=== PATIENT | male | born 1975 | race Native Hawaiian/Other Pacific Islander ===

== ENCOUNTER 2017-04-03 12:53 | Emergency (ER) | payer SELFPAY ==
--- NOTE | 2017-04-03 13:57 | Emergency Department Report ---
ED Headache HPI - General Chief Complaint: Headache Stated Complaint: HEADACHE Time Seen by Provider: 04/03/17 13:55 - History of Present Illness Initial Comments: 41-year-old male past medical history diabetes presents with complaint of 3 weeks of worsening right-sided throbbing headache. Patient states that approximately one week ago he noticed that his right eye began deviating immediately began experiencing double vision. Denies fevers or chills denies any head trauma. States he came to the ED 48 hours ago and was assessed and discharged. Patient states the headache has not improved and seems to be worsening which is why he presents today to the ED. Patient is [place]gu[place]- speaking which I speak fluently. Patient is currently awake alert and oriented 3. Timing/Duration: episodic, other (3 weeks) Quality: moderate Head Injury Location: temporal Associated Symptoms: denies symptoms Allergies/Adverse Reactions: Allergies No Known Allergies Allergy (Verified 04/03/17 13:52) Home Medications: Ambulatory Orders Butalb/Acetamin/Caff 50-325-40 [Fioricet] 2 tab PO Q6HR PRN #40 tab 04/01/17 Prochlorperazine [Compazine] 10 mg PO Q8HR PRN #20 tablet 04/01/17 Aspirin EC [Aspirin Enteric Coated TAB] 81 mg PO QDAY #30 tablet. 04/04/17 HYDROcodone/APAP 5-325 [Munger 5/325] 1 each PO Q6HR PRN #12 tablet 04/04/17 Ondansetron [Zofran Odt] 4 mg PO Q8HR PRN #10 tab.rapdis 04/04/17 ED Review of Systems ROS: Stated complaint: HEADACHE Other details as noted in HPI Constitutional: denies: chills, fever Eyes: vision change (doubel vision right eye). denies: eye pain, eye discharge ENT: denies: ear pain, throat pain Respiratory: denies: cough, shortness of breath, wheezing Cardiovascular: denies: chest pain, palpitations Endocrine: no symptoms reported Gastrointestinal: denies: abdominal pain, nausea, diarrhea Genitourinary: denies: urgency, dysuria Musculoskeletal: denies: back pain, joint swelling, arthralgia Skin: denies: rash, lesions Neurological: as per HPI, headache (3 weeks of persistent headache). denies: weakness, paresthesias Psychiatric: denies: anxiety, depression Hematological/Lymphatic: denies: easy bleeding, easy bruising ED Past Medical Hx - Past Medical History Previous Medical History?: Yes Hx Diabetes: Yes - Surgical History Past Surgical History?: No - Social History Smoking Status: Current Some Day Smoker Substance Use Type: None - Medications Home Medications: Home Medications Medication Instructions Recorded Confirmed Last Taken Type Butalb/Acetamin/Caff 50-325-40 2 tab PO Q6HR PRN #40 tab 04/01/17 Unknown Rx [Fioricet] Prochlorperazine [Compazine] 10 mg PO Q8HR PRN #20 tablet 04/01/17 Unknown Rx Aspirin EC [Aspirin Enteric Coated 81 mg PO QDAY #30 tablet.dr 04/04/17 Unknown Rx TAB] HYDROcodone/APAP 5-325 [[place] 1 each PO Q6HR PRN #12 tablet 04/04/17 Unknown Rx 5/325] Ondansetron [Zofran Odt] 4 mg PO Q8HR PRN #10 tab.rapdis 04/04/17 Unknown Rx ED Physical Exam - General Limitations: Language Barrier General appearance: alert, in no apparent distress - Head Head exam: Present: atraumatic, normocephalic - Eye Eye exam: Present: normal appearance, PERRL. Absent: other (right eye gaze deviation , downward and outward, right eye cannot track medially) - Expanded Eye Exam Expanded Pupils: Regular, Round: Bilateral, Reactive: Bilateral Visual acuity (R) = 20/: 30 Visual acuity (L) = 20/: 30 - ENT ENT exam: Present: mucous membranes moist - Neck Neck exam: Present: normal inspection - Respiratory Respiratory exam: Present: normal lung sounds bilaterally. Absent: respiratory distress - Cardiovascular Cardiovascular Exam: Present: regular rate, normal rhythm. Absent: systolic murmur, diastolic murmur, rubs, gallop - GI/Abdominal GI/Abdominal exam: Present: soft, normal bowel sounds - Rectal Rectal exam: Present: deferred - Extremities Exam Extremities exam: Present: normal inspection - Back Exam Back exam: Present: normal inspection - Neurological Exam Neurological exam: Present: alert, oriented X3 - Expanded Neurological Exam Expanded Patient oriented to: Present: person, place, time Cranial nerves: EOM's Intact: Abnormal Right (right eye outward and downward gaze deviation), Nystagmus: Normal Cerebellar function: Finger to Nose: Normal, Heel to Valladares: Normal, Romberg: Normal Upper motor neuron: Mati Neglect: Normal, Pronator Drift: Normal Sensory exam: Upper Extremity Light Touch: Normal, Lower Extremity Light Touch: Normal Motor strength exam: RUE: 5, LUE: 5, RLE: 5, LLE: 5 Best Eye Response (Hixson): (4) open spontaneously Best Motor Response (Carolyne): (6) obeys commands Best Verbal Response (Hixson): (5) oriented Carolyne Total: 15 - Psychiatric Psychiatric exam: Present: normal affect, normal mood - Skin Skin exam: Present: warm, dry, intact, normal color. Absent: rash ED Course Vital Signs 04/03/17 04/04/17 13:48 00:18 Temperature 98.4 F Pulse Rate 71 53 L Respiratory 16 16 Rate Blood Pressure 123/86 Blood Pressure 139/92 [Left] O2 Sat by Pulse 99 99 Oximetry ED Medical Decision Making - Lab Data Result diagrams: 04/03/17 14:03 04/03/17 14:03 - Medical Decision Making A/P: headache, right eye gaze devation 1- I discussed case with Dr. Garcia who recommended obtaining CT noncon head, CT angio head. Both WNL 2- I consulted teleNeuro service, Case discussed with Dr. Lemus who examined the pat and took hx via Teleneuro device. Clinical concern for 3rd nerve palsy and new right medial rectus palsy. Recommendation to obtain carotid US ( pt already had IV contrast today, cannot obtain Ct angio neck). At rec of Dr. Lemus via TeleNeruo service I also obtained an ESR and CRP to screen for vasculitic conditions, both negative. EKG Sinus rhythm, 3- Will start pt on ASA 81mg qday 4- As carotid doppler is unavailable now will give pt order form for carotid US to screen for dissection 5- I discussed the case with [facility] on-call neurologist Dr. Covington. As per Dr. Covington patient needs to follow up as outpatient, third cranial nerve palsy is a known phenomenon and diabetics and he likely has microvascular disease based on results of CT is clinical history and clinical presentation. This is consistent with the recommendations of Dr. Lemus via Teleneruology 6- I discussed the case and plan with Dr. Lyn before discharging the pt. He agreed pt can f/u as outpt. . Critical Care Time: Yes Critical care time in (mins) excluding proc time.: 240 Critical care attestation.: If time is entered above; I have spent that time in minutes in the direct care of this critically ill patient, excluding procedure time. 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 Patient given order form. Patient states she understands he must return for carotid ultrasound. [email or web address] Prescriptions: Aspirin EC [Aspirin Enteric Coated TAB] 81 mg PO QDAY #30 tablet. HYDROcodone/APAP 5-325 [Munger 5/325] 1 each PO Q6HR PRN #12 tablet PRN Reason: Headache Ondansetron [Zofran Odt] 4 mg PO Q8HR PRN #10 tab.rapdis PRN Reason: Nausea Referrals: [facility] [Outside] - 3-5 Days [facility] [Outside] - 3-5 Days DC LOGAN MD [Staff Physician] - 3-5 Days RENALDO MANCINI MD [Referring] - 3-5 Days Forms: Work/School Release Form(ED) Time of Disposition: 00:03 Print Language: KYRGYZ
[2017-04-03 14:21] LABS: Basophils % (Auto) 0.6 % (0.0-1.8); Eosinophils % (Auto) 12.9 % (0.0-4.3); Mean Corpuscular HGB Conc 36 % (32-34); Mean Corpuscular Hemoglobin 29 pg (28-32); Mean Corpuscular Volume 82 fl (84-94); Platelet Count 256 K/mm3 (140-440); Red Blood Count 5.13 M/mm3 (3.65-5.03); Red Cell Distribution Width 12.9 % (13.2-15.2); White Blood Count 8.8 K/mm3 (4.5-11.0)
[2017-04-03 14:22] LABS: Hematocrit 41.9 % (35.5-45.6)
[2017-04-03] MEDS ORDERED: REGLAN IV ONE (14:23)
[2017-04-03 14:34] LABS: Anion Gap 16 mmol/L; BUN/Creatinine Ratio 17; Blood Urea Nitrogen 10 mg/dL (9-20); Calcium 9.6 mg/dL (8.4-10.2); Carbon Dioxide 27 mmol/L (22-30); Chloride 94.7 mmol/L (98-107); Glucose 356 mg/dL (75-100); Potassium 4.5 mmol/L (3.6-5.0); Sodium 133 mmol/L (137-145)
[2017-04-03] MEDS ORDERED: NACL 0.9% 1000 ML 1,000 ML IV ONE (14:35)
--- NOTE | 2017-04-03 15:55 | Cat Scan Report ---
CT HEAD WITHOUT CONTRAST INDICATION: Headache. COMPARISON: 04/01/2017. FINDINGS: Noncontrast head CT demonstrates normal ventricles and sulci without acute or recent infarct, hemorrhage, mass effect or midline shift. No abnormal extra-axial fluid collections. Posterior fossa structures and basilar cisterns appear within normal limits. Clear imaged paranasal sinuses and mastoid air cells. Intact calvarium. Stable 3 mm right paramidline frontal scalp radiodense foreign body. Edentulous jaw. CONCLUSION: No acute intracranial CT abnormality, as described. Thank you for the opportunity to participate in this patient's care.
[2017-04-03] MEDS ORDERED: TYLENOL PO ONE (17:09)
--- NOTE | 2017-04-03 17:29 | Cat Scan Report ---
FINAL REPORT EXAM: CT ANGIO HEAD HISTORY: headache worsening, right eye deviation CT angiogram with intravenous contrast. Multiplanar and maximum intensity projection reconstructions PRIORS: None. FINDINGS: Normal appearance of the intracranial portion of the carotid arteries. The MCA and CRIS distributions are unremarkable Distal vertebral arteries are intact. The basilar and ROOFER METAL circulation is within normal limits No evidence for major vascular occlusion or aneurysm No intraorbital abnormalities are identified. IMPRESSION: Normal CT angiogram head
[2017-04-03] MEDS ORDERED: HALFPRIN EC PO ONE (23:56)
[2017-04-03] MEDS ORDERED: NORCO 5/325 PO ONE (23:57)
[2017-04-03] MEDS ORDERED: ZOFRAN ODT PO ONE (23:57)
[2017-04-04 00:18] VITALS: BP 139/92
== END 2017-04-04 00:30 | disposition home or self-care (01) ==
LOC: ED 12:53
DX: H49.01 Third [oculomotor] nerve palsy, right eye (principal); R51 Headache; E11.9 Type 2 diabetes mellitus without complications; F17.200 Nicotine dependence, unspecified, uncomplicated
CPT/HCPCS: 36415; 70450; 70496; 80048; 82962; 84484; 85025; 85652; 86140; 93005; 93010; 96361; 96374; 99291; J2765; J7030; Q9967; Q0162

== ENCOUNTER 2018-11-11 17:56 | Emergency (ER) | payer SELFPAY ==
--- NOTE | 2018-11-11 19:41 | Emergency Department Report ---
ED Alcohol HPI - General Chief Complaint: Weakness Stated Complaint: ETOH/PARANOID Time Seen by Provider: 11/11/18 19:00 Source: patient, EMS Mode of arrival: Stretcher Limitations: Language Barrier (child and family services worker used) - History of Present Illness Initial Comments: 43-year-old male with a past smoker history of alcohol abuse presents to the hospital with acute alcohol intoxication and weakness. Patient drinks beer and liquor daily lately. He denies history of alcohol withdrawal tremors or seizures. He stated he was walking a lot and states that he could not walk anymore. He felt weak and sat down. He denies syncope, fall, or head injury. He denies any chest pain, shortness of breath, abdominal pain, nausea, vomiting, or dysuria. He denies any medical hx despite previous report a history of diabetes or record. - Related Data Previous Rx's Medication Instructions Recorded Last Taken Type Butalb/Acetamin/Caff 50-325-40 2 tab PO Q6HR PRN #40 tab 04/01/17 Unknown Rx [Fioricet] Prochlorperazine [Compazine] 10 mg PO Q8HR PRN #20 tablet 04/01/17 Unknown Rx Aspirin EC [Aspirin Enteric Coated 81 mg PO QDAY #30 tablet.dr 04/04/17 Unknown Rx TAB] HYDROcodone/APAP 5-325 [[place] 1 each PO Q6HR PRN #12 tablet 04/04/17 Unknown Rx 5/325] Ondansetron [Zofran Odt] 4 mg PO Q8HR PRN #10 tab.rapdis 04/04/17 Unknown Rx Sodium Chloride [Saline Nasal 1 - 2 sprays NS PRN PRN #1 bottle 11/12/18 Unknown Rx [place]] Allergies Allergy/AdvReac Type Severity Reaction Status Date / Time No Known Allergies Allergy Verified 04/03/17 13:52 ED Review of Systems ROS: Stated complaint: ETOH/PARANOID Other details as noted in HPI Comment: All other systems reviewed and negative ED Past Medical Hx - Past Medical History Previous Medical History?: Yes Hx Diabetes: Yes - Surgical History Past Surgical History?: No - Social History Smoking Status: Never Smoker Substance Use Type: Alcohol - Medications Home Medications: Home Medications Medication Instructions Recorded Confirmed Last Taken Type Butalb/Acetamin/Caff 50-325-40 2 tab PO Q6HR PRN #40 tab 04/01/17 Unknown Rx [Fioricet] Prochlorperazine [Compazine] 10 mg PO Q8HR PRN #20 tablet 04/01/17 Unknown Rx Aspirin EC [Aspirin Enteric Coated 81 mg PO QDAY #30 tablet.dr 04/04/17 Unknown Rx TAB] HYDROcodone/APAP 5-325 [[place] 1 each PO Q6HR PRN #12 tablet 04/04/17 Unknown Rx 5/325] Ondansetron [Zofran Odt] 4 mg PO Q8HR PRN #10 tab.rapdis 04/04/17 Unknown Rx Sodium Chloride [Saline Nasal 1 - 2 sprays NS PRN PRN #1 bottle 11/12/18 Unkno wn Rx [place]] ED Physical Exam - General Limitations: No Limitations - Other Other exam information: General: sleeping but easily arousable Head exam: Atraumatic, normocephalic Eyes exam: Normal appearance ENT: Moist mucous membrane Neck exam: Normal inspection, full range of motion, no meningismus nontender Respiratory exam: Clear to auscultation bilateral, no wheezes, rales, crackles Cardiovascular: Normal rate and rhythm, normal heart sounds Abdomen: Soft, nondistended, and nontender, with normal bowel sounds, no rebound, or guarding Extremity: Full range of motion normal inspection no deformity Back: Normal Inspection, full range of motion, no tenderness Neurologic: Alert, oriented x3, cranial nerves intact, no motor or sensory deficit, no tremor Psychiatric: normal affect, normal mood, alcohol intoxication Skin: Warm, dry, intact ED Course Vital Signs 11/11/18 11/11/18 11/11/18 19:29 19:33 22:31 Temperature 98.4 F Pulse Rate 83 89 Respiratory 16 16 16 Rate Blood Pressure 126/78 Blood Pressure 126/78 131/83 [Left] O2 Sat by Pulse 96 96 100 Oximetry ED Medical Decision Making - Lab Data Result diagrams: 11/11/18 19:28 11/11/18 19:28 Lab Results 11/11/18 11/11/18 11/11/18 Range/Units 19:28 19:28 19:28 WBC 15.3 H (4.5-11.0) K/mm3 RBC 4.65 (3.65-5.03) M/mm3 Hgb 14.4 (11.8-15.2) gm/dl Hct 40.9 (35.5-45.6) % MCV 88 (84-94) fl MCH 31 (28-32) pg MCHC 35 H (32-34) % RDW 15.9 H (13.2-15.2) % Plt Count 237 (140-440) K/mm3 Lymph % (Auto) 6.1 L (13.4-35.0) % [place] % (Auto) 3.7 (0.0-7.3) % Eos % (Auto) 0.0 (0.0-4.3) % Baso % (Auto) 0.4 (0.0-1.8) % Lymph # 0.9 L (1.2-5.4) K/mm3 [place] # 0.6 (0.0-0.8) K/mm3 Eos # 0.0 (0.0-0.4) K/mm3 Baso # 0.1 (0.0-0.1) K/mm3 Seg Neutrophils % 89.8 H (40.0-70.0) % Seg Neutrophils # 13.7 H (1.8-7.7) K/mm3 Sodium 145 (137-145) mmol/L Potassium 3.8 (3.6-5.0) mmol/L Chloride 106.6 (98-107) mmol/L Carbon Dioxide 18 L (22-30) mmol/L Anion Gap 24 mmol/L BUN 14 (9-20) mg/dL Creatinine 0.8 (0.8-1.5) mg/dL Estimated GFR > 60 ml/min BUN/Creatinine Ratio 18 % Glucose 78 (75-100) mg/dL POC Glucose (70-105) Calcium 9.1 (8.4-10.2) mg/dL Magnesium (1.7-2.3) mg/dL Total Bilirubin 0.60 (0.1-1.2) mg/dL AST 46 H (5-40) units/L ALT 26 (7-56) units/L Alkaline Phosphatase 65 (35-129) units/L Ammonia 35.0 (25-60) umol/L Total Protein 7.4 (6.3-8.2) g/dL Albumin 4.1 (3.9-5) g/dL Albumin/Globulin Ratio 1.2 % Urine Color (Yellow) Urine Turbidity (Clear) Urine pH (5.0-7.0) Ur Specific [place] (1.003-1.030) Urine Protein (Negative) mg/dL Urine Glucose (UA) (Negative) mg/dL Urine Ketones (Negative) mg/dL Urine Blood (Negative) Urine Nitrite (Negative) Urine Bilirubin (Negative) Urine Urobilinogen (<2.0) mg/dL Ur Leukocyte Esterase (Negative) Urine WBC (Auto) (0.0-6.0) /HPF Urine RBC (Auto) (0.0-6.0) /HPF U Epithel Cells (Auto) (0-13.0) /HPF Urine Mucus /HPF Urine Opiates Screen Urine Methadone Screen Ur Barbiturates Screen Ur Phencyclidine Scrn Ur Amphetamines Screen U Benzodiazepines Scrn Urine Cocaine Screen U Marijuana (THC) Screen Drugs of Abuse Note Plasma/Serum Alcohol (0-0.07) % 11/11/18 11/11/18 11/11/18 Range/Units 19:28 19:28 19:52 WBC (4.5-11.0) K/mm3 RBC (3.65-5.03) M/mm3 Hgb (11.8-15.2) gm/dl Hct (35.5-45.6) % MCV (84-94) fl MCH (28-32) pg MCHC (32-34) % RDW (13.2-15.2) % Plt Count (140-440) K/mm3 Lymph % (Auto) (13.4-35.0) % [place] % (Auto) (0.0-7.3) % Eos % (Auto) (0.0-4.3) % Baso % (Auto) (0.0-1.8) % Lymph # (1.2-5.4) K/mm3 [place] # (0.0-0.8) K/mm3 Eos # (0.0-0.4) K/mm3 Baso # (0.0-0.1) K/mm3 Seg Neutrophils % (40.0-70.0) % Seg Neutrophils # (1.8-7.7) K/mm3 Sodium (137-145) mmol/L Potassium (3.6-5.0) mmol/L Chloride (98-107) mmol/L Carbon Dioxide (22-30) mmol/L Anion Gap mmol/L BUN (9-20) mg/dL Creatinine (0.8-1.5) mg/dL Estimated GFR ml/min BUN/Creatinine Ratio % Glucose (75-100) mg/dL POC Glucose 66 L (70-105) Calcium (8.4-10.2) mg/dL Magnesium 2.20 (1.7-2.3) mg/dL Total Bilirubin (0.1-1.2) mg/dL AST (5-40) units/L ALT (7-56) units/L Alkaline Phosphatase (35-129) units/L Ammonia (25-60) umol/L Total Protein (6.3-8.2) g/dL Albumin (3.9-5) g/dL Albumin/Globulin Ratio % Urine Color (Yellow) Urine Turbidity (Clear) Urine pH (5.0-7.0) Ur Specific [place] (1.003-1.030) Urine Protein (Negative) mg/dL Urine Glucose (UA) (Negative) mg/dL Urine Ketones (Negative) mg/dL Urine Blood (Negative) Urine Nitrite (Negative) Urine Bilirubin (Negative) Urine Urobilinogen (<2.0) mg/dL Ur Leukocyte Esterase (Negative) Urine WBC (Auto) (0.0-6.0) /HPF Urine RBC (Auto) (0.0-6.0) /HPF U Epithel Cells (Auto) (0-13.0) /HPF Urine Mucus /HPF Urine Opiates Screen Urine Methadone Screen Ur Barbiturates Screen Ur Phencyclidine Scrn Ur Amphetamines Screen U Benzodiazepines Scrn Urine Cocaine Screen U Marijuana (THC) Screen Drugs of Abuse Note Plasma/Serum Alcohol 0.06 (0-0.07) % 11/11/18 11/11/18 Range/Units 22:31 22:31 WBC (4.5-11.0) K/mm3 RBC (3.65-5.03) M/mm3 Hgb (11.8-15.2) gm/dl Hct (35.5-45.6) % MCV (84-94) fl MCH (28-32) pg MCHC (32-34) % RDW (13.2-15.2) % Plt Count (140-440) K/mm3 Lymph % (Auto) (13.4-35.0) % [place] % (Auto) (0.0-7.3) % Eos % (Auto) (0.0-4.3) % Baso % (Auto) (0.0-1.8) % Lymph # (1.2-5.4) K/mm3 [place] # (0.0-0.8) K/mm3 Eos # (0.0-0.4) K/mm3 Baso # (0.0-0.1) K/mm3 Seg Neutrophils % (40.0-70.0) % Seg Neutrophils # (1.8-7.7) K/mm3 Sodium (137-145) mmol/L Potassium (3.6-5.0) mmol/L Chloride (98-107) mmol/L Carbon Dioxide (22-30) mmol/L Anion Gap mmol/L BUN (9-20) mg/dL Creatinine (0.8-1.5) mg/dL Estimated GFR ml/min BUN/Creatinine Ratio % Glucose (75-100) mg/dL POC Glucose (70-105) Calcium (8.4-10.2) mg/dL Magnesium (1.7-2.3) mg/dL Total Bilirubin (0.1-1.2) mg/dL AST (5-40) units/L ALT (7-56) units/L Alkaline Phosphatase (35-129) units/L Ammonia (25-60) umol/L Total Protein (6.3-8.2) g/dL Albumin (3.9-5) g/dL Albumin/Globulin Ratio % Urine Color Yellow (Yellow) Urine Turbidity Cloudy (Clear) Urine pH 5.0 (5.0-7.0) Ur Specific [place] 1.025 (1.003-1.030) Urine Protein <15 mg/dl (Negative) mg/dL Urine Glucose (UA) Neg (Negative) mg/dL Urine Ketones 20 (Negative) mg/dL Urine Blood Neg (Negative) Urine Nitrite Neg (Negative) Urine Bilirubin Neg (Negative) Urine Urobilinogen < 2.0 (<2.0) mg/dL Ur Leukocyte Esterase Neg (Negative) Urine WBC (Auto) < 1.0 (0.0-6.0) /HPF Urine RBC (Auto) 2.0 (0.0-6.0) /HPF U Epithel Cells (Auto) 1.0 (0-13.0) /HPF Urine Mucus 1+ /HPF Urine Opiates Screen Presumptive negative Urine Methadone Screen Presumptive negative Ur Barbiturates Screen Presumptive negative Ur Phencyclidine Scrn Presumptive negative Ur Amphetamines Screen Presumptive positive U Benzodiazepines Scrn Presumptive negative Urine Cocaine Screen Presumptive positive U Marijuana (THC) Screen Presumptive negative Drugs of Abuse Note Disclamer Plasma/Serum Alcohol (0-0.07) % - Radiology Data Radiology results: report reviewed PROCEDURE: CT HEAD/BRAIN WO CON TECHNIQUE: Computerized tomography of the head was performed without contrast material. HISTORY: etoh, lethargic COMPARISONS: None . FINDINGS: Skull and scalp: Normal . Paranasal sinuses: Moderate opacification of the ethmoid and sphenoid sinuses . Ventricles and subarachnoid spaces: Normal . Cerebrum: No evidence of hemorrhage, acute infarction or mass . Cerebellum and brainstem: No evidence of hemorrhage, acute infarction or mass . Vasculature: Normal . Other: None . ASPECTS: 10 IMPRESSION: There is no evidence of an acute intracranial process. Moderate sinusitis . - Medical Decision Making uds + cocaine and amphetamines as well as alcohol in his blood. CT head unremarkable with exception of moderate sinusitis patient will be placed on a decongestants as he does not have a fever, purulent nasal discharge, or facial pain. dehydration tx with 1 banana bag pt given juice and something to eat and glucose improved to 121 Outpatient follow-up would be advised no signs of etoh withdrawal tremors or tachycardia at d/c - Differential Diagnosis alcohol intoxcation, dehydration Critical Care Time: No Critical care attestation.: If time is entered above; I have spent that time in minutes in the direct care of this critically ill patient, excluding procedure time. ED Disposition Clinical Impression: Dehydration, Cocaine abuse, Amphetamine abuse, Sinusitis, Alcohol abuse, daily use Disposition: DC-01 TO HOME OR SELFCARE Is pt being admited?: No Does the pt Need Aspirin: No Condition: Stable Instructions: Dehydration (ED), Cocaine Abuse (ED), Methamphetamine Abuse (ED), At-Risk Alcohol Use (ED) Additional Instructions: Take the medication as prescribed. Follow up with your doctor or the clinic/doctor provided. Return if symptoms worsen as indicated by your discharge instructions [place] la medicacin segn lo prescrito. Richy un seguimiento con gloria mdico o la clnica / mdico proporcionado. Regrese si los sntomas empeoran lola lo indican domo instrucciones de trisha. Prescriptions: Sodium Chloride [Saline Nasal [place]] 1 - 2 sprays NS PRN PRN #1 bottle PRN Reason: Nasal Congestion Referrals: BING EDWARD MD [Primary Care Provider] - [facility] Days [facility] - 3-5 Days Time of Disposition: 00:23 Print Language: STATELESS
[2018-11-11 19:43] LABS: Basophils # (Auto) 0.1 K/mm3 (0.0-0.1); Basophils % (Auto) 0.4 % (0.0-1.8); Hematocrit 40.9 % (35.5-45.6); Hemoglobin 14.4 gm/dl (11.8-15.2); Lymphocytes # (Auto) 0.9 K/mm3 (1.2-5.4); Lymphocytes % (Auto) 6.1 % (13.4-35.0); Mean Corpuscular HGB Conc 35 % (32-34); Mean Corpuscular Volume 88 fl (84-94); Monocytes # (Auto) 0.6 K/mm3 (0.0-0.8); Monocytes % (Auto) 3.7 % (0.0-7.3); Platelet Count 237 K/mm3 (140-440); Red Blood Count 4.65 M/mm3 (3.65-5.03); Red Cell Distribution Width 15.9 % (13.2-15.2)
[2018-11-11] MEDS ORDERED: VITAMIN B-1 100 MG, FOLVITE 1 MG, INFUVITE 10 ML in NACL 0.9% 1000 ML 1,000 ML IV ONE (20:00)
[2018-11-11 20:01] LABS: Alanine Aminotransferase 26 units/L (7-56); Albumin 4.1 g/dL (3.9-5); BUN/Creatinine Ratio 18; Blood Urea Nitrogen 14 mg/dL (9-20); Calcium 9.1 mg/dL (8.4-10.2); Hemolysis Index 4
[2018-11-11 22:46] LABS: Benzodiazepines Screen,Urine PRESUMPTIVE NEGATIVE; Cannabinoid Screen,Urine PRESUMPTIVE NEGATIVE; Methadone Screen,Urine PRESUMPTIVE NEGATIVE; Opiate Screen,Urine PRESUMPTIVE NEGATIVE
[2018-11-11 22:58] LABS: Bilirubin,Urine NEG (Negative); Blood,Urine NEG (Negative); Color,Urine Yellow (Yellow); Mucus,Urine 1+ /HPF; Protein,Urine <15 mg/dL mg/dL (Negative); Urobilinogen,Urine < 2.0 mg/dL (<2.0); WBC,Urine < 1.0 /HPF (0.0-6.0)
[2018-11-11 23:07] LABS: Amphetamine Screen,Urine PRESUMPTIVE POSITIVE; Cocaine Screen,Urine PRESUMPTIVE POSITIVE
--- NOTE | 2018-11-11 23:55 | Cat Scan Report ---
PROCEDURE: CT HEAD/BRAIN WO CON TECHNIQUE: Computerized tomography of the head was performed without contrast material. HISTORY: etoh, lethargic COMPARISONS: None . FINDINGS: Skull and scalp: Normal . Paranasal sinuses: Moderate opacification of the ethmoid and sphenoid sinuses . Ventricles and subarachnoid spaces: Normal . Cerebrum: No evidence of hemorrhage, acute infarction or mass . Cerebellum and brainstem: No evidence of hemorrhage, acute infarction or mass . Vasculature: Normal . Other: None . ASPECTS: 10 IMPRESSION: There is no evidence of an acute intracranial process. Moderate sinusitis . This document is electronically signed by Suzan Grant DO., November 11 2018 11:53:09 PM ET
[2018-11-12 00:59] VITALS: BP 148/66
== END 2018-11-12 00:57 | disposition home or self-care (01) ==
LOC: ED 17:56
DX: F10.129 Alcohol abuse with intoxication, unspecified (principal); E86.0 Dehydration; F14.10 Cocaine abuse, uncomplicated; J32.9 Chronic sinusitis, unspecified; E11.9 Type 2 diabetes mellitus without complications
CPT/HCPCS: 36415; 70450; 80053; 80307; 81001; 82140; 82962; 83735; 85025; G0480; J3411; J7030; 80320; 96365; 96366

== ENCOUNTER 2020-06-06 10:47 | Emergency (ER) | payer BC ==
--- NOTE | 2020-06-06 10:53 | Event Note ---
ED Screening Note Date of service: 06/06/20 Time: 10:52 ED Screening Note: Complains of left facial droop x yesterday History of diabetes Patient is Chinese-speaking He is actively diaphoretic This initial assessment/diagnostic orders/clinical plan/treatment(s) is/are subject to change based on patients health status, clinical progression and re- assessment by fellow clinical providers in the ED. Further treatment and workup at subsequent clinical providers discretion. Patient/guardian urged not to elope from the ED as their condition may be serious if not clinically assessed and managed. Initial orders include: labs ekg ct head
--- NOTE | 2020-06-06 11:50 | Cat Scan Report ---
CT head/brain wo con INDICATION: MAIN. TECHNIQUE: All CT scans at this location are performed using CT dose reduction for ALARA by means of automated e xposure control. COMPARISON: 11/11/2018 FINDINGS: Visualized paranasal and mastoid sinuses are clear. Ventricles are symmetrical and normal in size. No mass, hemorrhage or other acute abnormality. IMPRESSION: 1. No significant abnormality. Signer Name: Chau Jonas MD Signed: 06/06/2020 11:45 AM Workstation Name: [id number]
--- NOTE | 2020-06-06 12:01 | Emergency Department Report ---
ED Neuro Deficit HPI - General Chief Complaint: Neuro Symptoms/Deficit Stated Complaint: NEURO SYMPTOMS Time Seen by Provider: 06/06/20 10:51 Source: patient Mode of arrival: Ambulatory Limitations: Language Barrier - History of Present Illness Initial Comments: Patient is a 44-year-old male with history of diabetes who presents from the emergency department with complaint of left-sided facial droop, dizziness, vertigo and left arm tingling. Patient was seen in triage and noted to be diaphoretic. Patient reports that he noticed on after drinking some alcohol left sided facial pain and then noted facial droop and drooling after drinking water. He states he took a [place] peel and then did not come to the ER until today. Patient reports that he currently has tingling in the left arm and feels dizzy. He is unable to lay if it feels the room is spinning or he has been greater if he is to slight headache. He denies any chest pain or shortness of breath. - Related Data Home Medications: Previous Rx's Medication Instructions Recorded Last Taken Type Butalb/Acetamin/Caff 50-325-40 2 tab PO Q6HR PRN #40 tab 04/01/17 Unknown Rx [Fioricet] Prochlorperazine [Compazine] 10 mg PO Q8HR PRN #20 tablet 04/01/17 Unknown Rx Aspirin EC [Aspirin Enteric Coated 81 mg PO QDAY #30 tablet.dr 04/04/17 Unknown Rx TAB] HYDROcodone/APAP 5-325 [[place] 1 each PO Q6HR PRN #12 tablet 04/04/17 Unknown Rx 5/325] Ondansetron [Zofran Odt] 4 mg PO Q8HR PRN #10 tab.rapdis 04/04/17 Unknown Rx Sodium Chloride [Saline Nasal 1 - 2 sprays NS PRN PRN #1 bottle 11/12/18 Unknown Rx [place]] prednisoLONE [Millipred 5mg (6 day 5 mg PO QDAY #21 tab.ds.pk 06/06/20 Unknown Rx 21 tab dosepak)] Allergies/Adverse Reactions: Allergies Allergy/AdvReac Type Severity Reaction Status Date / Time No Known Allergies Allergy Verified 04/03/17 13:52 ED Review of Systems ROS: Stated complaint: NEURO SYMPTOMS Other details as noted in HPI Constitutional: denies: chills, fever ENT: denies: throat pain Respiratory: denies: shortness of breath Cardiovascular: denies: chest pain Endocrine: excessive sweating Gastrointestinal: denies: abdominal pain, nausea, vomiting Genitourinary: as per HPI Musculoskeletal: denies: back pain Skin: denies: rash Neurological: paresthesias. denies: headache Psychiatric: denies: anxiety, depression Hematological/Lymphatic: denies: easy bleeding ED Past Medical Hx - Past Medical History Previous Medical History?: Yes Hx Diabetes: Yes - Social History Smoking Status: Never Smoker Substance Use Type: Alcohol - Medications Home Medications: Home Medications Medication Instructions Recorded Confirmed Last Taken Type Butalb/Acetamin/Caff 50-325-40 2 tab PO Q6HR PRN #40 tab 04/01/17 Unknown Rx [Fioricet] Prochlorperazine [Compazine] 10 mg PO Q8HR PRN #20 tablet 04/01/17 Unknown Rx Aspirin EC [Aspirin Enteric Coated 81 mg PO QDAY #30 tablet.dr 04/04/17 Unknown Rx TAB] HYDROcodone/APAP 5-325 [[place] 1 each PO Q6HR PRN #12 tablet 04/04/17 Unknown Rx 5/325] Ondansetron [Zofran Odt] 4 mg PO Q8HR PRN #10 tab.rapdis 04/04/17 Unknown Rx Sodium Chloride [Saline Nasal 1 - 2 sprays NS PRN PRN #1 bottle 11/12/18 Unknown Rx [place]] prednisoLONE [Millipred 5mg (6 day 5 mg PO QDAY #21 tab.ds.pk 06/06/20 Unknown Rx 21 tab dosepak)] ED Neuro Physical Exam - General Limitations: Language Barrier General appearance: alert, in no apparent distress Suspected Stroke: Yes - Head Head exam: Present: atraumatic, normocephalic - Eye Eye exam: Present: normal appearance, PERRL, EOMI Pupils: Present: normal accommodation - ENT ENT exam: Present: other (Left TM with foreign body, appears to be an insect) - Neck Neck exam: Present: normal inspection - Respiratory Respiratory exam: Present: normal lung sounds bilaterally. Absent: respiratory distress, chest wall tenderness - Cardiovascular Cardiovascular Exam: Present: regular rate, normal rhythm, normal heart sounds - GI/Abdominal GI/Abdominal exam: Present: soft. Absent: distended - Rectal Rectal exam: Present: deferred - Extremities Exam Extremities exam: Present: normal inspection - Back Exam Back exam: Present: normal inspection - Neurological Exam Neurological exam: Present: alert, oriented X3 - NIHSS Assessment Interval: Baseline 1a. Level of Consciousness: alert/keenly responsive 1b. LOC Questions: answers both correctly 1c. LOC Commands: performs tasks correctly 2. Best Gaze: normal 3. Visual: no visual loss 4. Facial Palsy: unilateral complete paralysis 5b. Motor Arm Right: no drift 5a. Motor Arm Left: no drift 6a. Motor Leg Left: no drift 6b. Motor Leg Right: no drift 7. Limb Ataxia: absent 8. Sensory: normal 9. Best Language: no aphasia 10. Dysarthria: normal 11. Extinction/Inattention: no abnormality Total Score: 3 Stroke Severity: Minor Stroke - Psychiatric Psychiatric exam: Present: normal affect - Skin Skin exam: Present: warm, dry, intact ED Course Vital Signs 06/06/20 14:00 Pulse Rate 68 Respiratory 12 Rate Blood Pressure 119/89 [Left] O2 Sat by Pulse 98 Oximetry - Reevaluation(s) Reevaluation #1: 06/06/20 14:53 Planned for admission per tele neuro recs however patient seen by inpatient physician and agreeable to discharge with neurology followup. - Lab Data Result diagrams: 06/06/20 11:22 06/06/20 11:22 Lab Results 06/06/20 06/06/20 06/06/20 Range/Units 10:54 11:22 11:22 WBC 7.7 (4.5-11.0) K/mm3 RBC 4.99 (3.65-5.03) M/mm3 Hgb 14.9 (11.8-15.2) gm/dl Hct 42.5 (35.5-45.6) % MCV 85 (84-94) fl MCH 30 (28-32) pg MCHC 35 H (32-34) % RDW 13.1 L (13.2-15.2) % Plt Count 218 (140-440) K/mm3 Lymph % (Auto) 31.2 (13.4-35.0) % [place] % (Auto) 4.9 (0.0-7.3) % Eos % (Auto) 8.8 H (0.0-4.3) % Baso % (Auto) 0.6 (0.0-1.8) % Lymph # (Auto) 2.4 (1.2-5.4) K/mm3 [place] # (Auto) 0.4 (0.0-0.8) K/mm3 Eos # (Auto) 0.7 H (0.0-0.4) K/mm3 Baso # (Auto) 0.0 (0.0-0.1) K/mm3 Seg Neutrophils % 54.5 (40.0-70.0) % Seg Neutrophils # 4.2 (1.8-7.7) K/mm3 PT (12.2-14.9) Sec. INR (0.87-1.13) Sodium 135 L (137-145) mmol/L Potassium 4.0 (3.6-5.0) mmol/L Chloride 100.7 (98-107) mmol/L Carbon Dioxide 25 (22-30) mmol/L Anion Gap 13 mmol/L BUN 12 (9-20) mg/dL Creatinine 0.6 L (0.8-1.3) mg/dL Estimated GFR > 60 ml/min BUN/Creatinine Ratio 20 % Glucose 322 H (75-100) mg/dL POC Glucose 302 H (70-105) mg/dL Calcium 9.0 (8.4-10.2) mg/dL Magnesium (1.7-2.3) mg/dL Total Bilirubin 0.60 (0.1-1.2) mg/dL AST 18 (5-40) units/L ALT 30 (7-56) units/L Alkaline Phosphatase 86 (35-129) units/L Troponin T < 0.010 (0.00-0.029) ng/mL Total Protein 7.3 (6.3-8.2) g/dL Albumin 4.3 (3.9-5) g/dL Albumin/Globulin Ratio 1.4 % Urine Color (Yellow) Urine Turbidity (Clear) Urine pH (5.0-7.0) Ur Specific [place] (1.003-1.030) Urine Protein (Negative) mg/dL Urine Glucose (UA) (Negative) mg/dL Urine Ketones (Negative) mg/dL Urine Blood (Negative) Urine Nitrite (Negative) Urine Bilirubin (Negative) Urine Urobilinogen (<2.0) mg/dL Ur Leukocyte Esterase (Negative) Urine WBC (Auto) (0.0-6.0) /HPF Urine RBC (Auto) (0.0-6.0) /HPF U Epithel Cells (Auto) (0-13.0) /HPF 06/06/20 06/06/20 06/06/20 Range/Units 11:22 11:36 12:24 WBC (4.5-11.0) K/mm3 RBC (3.65-5.03) M/mm3 Hgb (11.8-15.2) gm/dl Hct (35.5-45.6) % MCV (84-94) fl MCH (28-32) pg MCHC (32-34) % RDW (13.2-15.2) % Plt Count (140-440) K/mm3 Lymph % (Auto) (13.4-35.0) % [place] % (Auto) (0.0-7.3) % Eos % (Auto) (0.0-4.3) % Baso % (Auto) (0.0-1.8) % Lymph # (Auto) (1.2-5.4) K/mm3 [place] # (Auto) (0.0-0.8) K/mm3 Eos # (Auto) (0.0-0.4) K/mm3 Baso # (Auto) (0.0-0.1) K/mm3 Seg Neutrophils % (40.0-70.0) % Seg Neutrophils # (1.8-7.7) K/mm3 PT 12.8 (12.2-14.9) Sec. INR 0.98 (0.87-1.13) Sodium (137-145) mmol/L Potassium (3.6-5.0) mmol/L Chloride (98-107) mmol/L Carbon Dioxide (22-30) mmol/L Anion Gap mmol/L BUN (9-20) mg/dL Creatinine (0.8-1.3) mg/dL Estimated GFR ml/min BUN/Creatinine Ratio % Glucose (75-100) mg/dL POC Glucose (70-105) mg/dL Calcium (8.4-10.2) mg/dL Magnesium 2.10 (1.7-2.3) mg/dL Total Bilirubin (0.1-1.2) mg/dL AST (5-40) units/L ALT (7-56) units/L Alkaline Phosphatase (35-129) units/L Troponin T (0.00-0.029) ng/mL Total Protein (6.3-8.2) g/dL Albumin (3.9-5) g/dL Albumin/Globulin Ratio % Urine Color Yellow (Yellow) Urine Turbidity Clear (Clear) Urine pH 6.0 (5.0-7.0) Ur Specific [place] 1.040 H (1.003-1.030) Urine Protein <15 mg/dl (Negative) mg/dL Urine Glucose (UA) >=500 (Negative) mg/dL Urine Ketones Tr (Negative) mg/dL Urine Blood Neg (Negative) Urine Nitrite Neg (Negative) Urine Bilirubin Neg (Negative) Urine Urobilinogen < 2.0 (<2.0) mg/dL Ur Leukocyte Esterase Neg (Negative) Urine WBC (Auto) < 1.0 (0.0-6.0) /HPF Urine RBC (Auto) < 1.0 (0.0-6.0) /HPF U Epithel Cells (Auto) < 1.0 (0-13.0) /HPF - EKG Data -: EKG Interpreted by Mn EKG shows normal: sinus rhythm Rate: normal - Radiology Data Radiology results: report reviewed - Medical Decision Making Patient is a 44-year-old male with history of diabetes who presents to the emergency department with complaint of left-sided facial droop however patient also complains of left arm tingling and vertigo. Given this although Ochoa's palsy is likely I will involve telemetry neurology. Patient also has was diaphoretic initially in triage so will obtain EKG, troponin, basic labs. Patient has gone for CT head and telemetry neurology will evaluate the patient. Critical care attestation.: If time is entered above; I have spent that time in minutes in the direct care of this critically ill patient, excluding procedure time. ED Disposition Clinical Impression: Ochoa's palsy Disposition: DC-01 TO HOME OR SELFCARE Is pt being admited?: No Does the pt Need Aspirin: No Condition: Stable Instructions: Ochoa Palsy, Adult Prescriptions: prednisoLONE [Millipred 5mg (6 day 21 tab dosepak)] 5 mg PO QDAY #21 tab.ds.pk Referrals: DC LOGAN MD [Staff Physician] - 3-5 Days ADDIS,RENALDO M, MD [Referring] - 3-5 Days PRIMARY CARE,MD [Primary Care Provider] - 3-5 Days
[2020-06-06 12:03] LABS: Basophils % (Auto) 0.6 % (0.0-1.8); Eosinophils # (Auto) 0.7 K/mm3 (0.0-0.4); Eosinophils % (Auto) 8.8 % (0.0-4.3); Hematocrit 42.5 % (35.5-45.6); Hemoglobin 14.9 gm/dl (11.8-15.2); Lymphocytes # (Auto) 2.4 K/mm3 (1.2-5.4); Lymphocytes % (Auto) 31.2 % (13.4-35.0); Mean Corpuscular HGB Conc 35 % (32-34); Mean Corpuscular Volume 85 fl (84-94); Monocytes # (Auto) 0.4 K/mm3 (0.0-0.8); Monocytes % (Auto) 4.9 % (0.0-7.3); Platelet Count 218 K/mm3 (140-440); Red Blood Count 4.99 M/mm3 (3.65-5.03); Red Cell Distribution Width 13.1 % (13.2-15.2)
--- NOTE | 2020-06-06 12:14 | XRay Report ---
CHEST PA AND LATERAL VIEWS INDICATION: acute cva workup;diaphoretic. COMPARISON: None FINDINGS: Support devices: None Heart: Normal Lungs/Pleura: No acute pulmonary or pleural findings. IMPRESSION: 1. No active disease. Signer Name: Chau Jonas MD Signed: 06/06/2020 12:10 PM Workstation Name: [id number]
[2020-06-06 12:15] LABS: INR 0.98 (0.87-1.13)
[2020-06-06 12:29] LABS: Alanine Aminotransferase 30 units/L (7-56); Albumin 4.3 g/dL (3.9-5); Blood Urea Nitrogen 12 mg/dL (9-20); Hemolysis Index 6
[2020-06-06 12:33] LABS: Bilirubin,Urine NEG (Negative); Blood,Urine NEG (Negative); Color,Urine Yellow (Yellow); Protein,Urine <15 mg/dL mg/dL (Negative); RBC,Urine < 1.0 /HPF (0.0-6.0); Urobilinogen,Urine < 2.0 mg/dL (<2.0); WBC,Urine < 1.0 /HPF (0.0-6.0)
--- NOTE | 2020-06-06 12:40 | Emergency Department Report ---
ED General Adult HPI - General Chief complaint: Neuro Symptoms/Deficit Stated complaint: NEURO SYMPTOMS Time Seen by Provider: 06/06/20 10:51 Source: patient Mode of arrival: Ambulatory Limitations: Language Barrier - History of Present Illness Initial comments: [facility] TeleNeurology Consult Services Stat Consult Date of Service: 06/06/2020 11:57:47 Impression: I63.9 - Cerebrovascular accident (CVA), unspecified mechanism (HCC) Comments/Sign-Out: Concern for stroke as he is having left arm weakness so while is face is more consistent with lower motor neuron weakness it would not effect his arm. Recommend evaluatin for a posterior circulation stroke. CT HEAD: Showed No Acute Hemorrhage or Acute Core Infarct Metrics: [employer] Notification Time: 06/06/2020 11:54:39 Stamp Time: 06/06/2020 11:57:47 Callback Response Time: 06/06/2020 12:00:22 Our recommendations are outlined below. Recommendations: Initiate Aspirin 325 MG Daily Imaging Studies: MRI Head Without Contrast MRA Head Without Contrast Echocardiogram - Transthoracic Echocardiogram Therapies: Physical Therapy, Occupational Therapy, Speech Therapy Assessment When Applicable Disposition: Neurology Follow Up Recommended Sign Out: Discussed with Emergency Department Provider ---- Chief Complaint: left face and arm weakness History of Present Illness: Patient is a 44 year old Male. 44 yo M with history of DM who is presenting with left facial weakness that started on . When he drinks it comes out the left side of his mouth. He has some left side he has some arm and leg weakness as well. He has a mild headache as well. History taken through [employer] interpretor. Past Medical History: Diabetes Mellitus Anticoagulant use: No Antiplatelet use: No Examination: BP(123/94), Pulse(67), Blood Glucose(302) 1A: Level of Consciousness - Alert; keenly responsive + 0 1B: Ask Month and Age - Both Questions Right + 0 1C: Blink Eyes & Squeeze Hands - Performs Both Tasks + 0 2: Test Horizontal Extraocular Movements - Normal + 0 3: Test Visual [place] - No Visual Loss + 0 4: Test Facial Palsy (Use Grimace if Obtunded) - Unilateral Complete paralysis (upper/lower face) + 3 5A: Test Left Arm Motor Drift - No Drift for 10 Seconds + 0 5B: Test Right Arm Motor Drift - No Drift for 10 Seconds + 0 6A: Test Left Leg Motor Drift - No Drift for 5 Seconds + 0 6B: Test Right Leg Motor Drift - No Drift for 5 Seconds + 0 7: Test Limb Ataxia (FNF/Heel-[place]) - No Ataxia + 0 8: Test Sensation - Normal; No sensory loss + 0 9: Test Language/Aphasia - Normal; No aphasia + 0 10: Test Dysarthria - Normal + 0 11: Test Extinction/Inattention - No abnormality + 0 NIHSS Score: 3 Patient/Family was informed the Neurology Consult would happen via TeleHealth consult by way of interactive audio and video telecommunications and consented to receiving care in this manner. Due to the immediate potential for life-threatening deterioration due to underlying acute neurologic illness, I spent 25 minutes providing critical care. This time includes time for face to face visit via telemedicine, review of medical records, imaging studies and discussion of findings with providers, the patient and/or family. Dr oYlis Bautista [facility] Case [id number] - Related Data Previous Rx's Medication Instructions Recorded Last Taken Type Butalb/Acetamin/Caff 50-325-40 2 tab PO Q6HR PRN #40 tab 04/01/17 Unknown Rx [Fioricet] Prochlorperazine [Compazine] 10 mg PO Q8HR PRN #20 tablet 04/01/17 Unknown Rx Aspirin EC [Aspirin Enteric Coated 81 mg PO QDAY #30 tablet. 04/04/17 Unknown Rx TAB] HYDROcodone/APAP 5-325 [[place] 1 each PO Q6HR PRN #12 tablet 04/04/17 Unknown Rx 5/325] Ondansetron [Zofran Odt] 4 mg PO Q8HR PRN #10 tab.rapdis 04/04/17 Unknown Rx Sodium Chloride [Saline Nasal 1 - 2 sprays NS PRN PRN #1 bottle 11/12/18 Unknown Rx [place]] Allergies Allergy/AdvReac Type Severity Reaction Status Date / Time No Known Allergies Allergy Verified 04/03/17 13:52 ED Review of Systems ROS: Stated complaint: NEURO SYMPTOMS Other details as noted in HPI Constitutional: denies: chills, fever ENT: denies: throat pain Respiratory: denies: shortness of breath Cardiovascular: denies: chest pain Endocrine: excessive sweating Gastrointestinal: denies: abdominal pain, nausea, vomiting Genitourinary: as per HPI Musculoskeletal: denies: back pain Skin: denies: rash Neurological: paresthesias. denies: headache Psychiatric: denies: anxiety, depression Hematological/Lymphatic: denies: easy bleeding ED Past Medical Hx - Past Medical History Previous Medical History?: Yes Hx Diabetes: Yes - Social History Smoking Status: Never Smoker Substance Use Type: Alcohol - Medications Home Medications: Home Medications Medication Instructions Recorded Confirmed Last Taken Type Butalb/Acetamin/Caff 50-325-40 2 tab PO Q6HR PRN #40 tab 04/01/17 Unknown Rx [Fioricet] Prochlorperazine [Compazine] 10 mg PO Q8HR PRN #20 tablet 04/01/17 Unknown Rx Aspirin EC [Aspirin Enteric Coated 81 mg PO QDAY #30 tablet.dr 04/04/17 Unknown Rx TAB] HYDROcodone/APAP 5-325 [[place] 1 each PO Q6HR PRN #12 tablet 04/04/17 Unknown Rx 5/325] Ondansetron [Zofran Odt] 4 mg PO Q8HR PRN #10 tab.rapdis 04/04/17 Unknown Rx Sodium Chloride [Saline Nasal 1 - 2 sprays NS PRN PRN #1 bottle 11/12/18 Unknown Rx [place]] ED Physical Exam - General Limitations: Language Barrier General appearance: alert, in no apparent distress ED Medical Decision Making - Lab Data Result diagrams: 06/06/20 11:22 06/06/20 11:22 Critical care attestation.: If time is entered above; I have spent that time in minutes in the direct care of this critically ill patient, excluding procedure time. ED Disposition Clinical Impression: Stroke Disposition: DC-09 OP ADMIT IP TO THIS HOSP Is pt being admited?: Yes Condition: Stable
[2020-06-06 12:44] LABS: BUN/Creatinine Ratio 20
--- NOTE | 2020-06-06 14:32 | Event Note ---
Date: 06/06/20 Patient evaluated in the emergency room-[facility] Patient in room 36 Patient has left facial droop for 1 day. Unable to close his left eye. On examination Lower motor neuron type facial palsy Power is 5/5 power in both upper and lower extremities Reflexes are normal Sensory system is normal No other cranial nerves involved No nasal regurgitation of fluids No ataxia Discharge diagnosis Left Ochoa's palsy Treatment Prednisone 10 mg 6-day Dosepak Follow-up with neurology Dr. Pérez or Dr. Hebert
--- NOTE | 2020-06-06 14:34 | Discharge Summary ---
Providers - Providers Date of discharge: 06/06/20 Primary care physician: REMIGIO DO MD Hospitalization Condition: Stable Hospital course: Patient evaluated for left facial palsy. Patient being discharged with a diagnosis of left Ochoa's palsy Patient to follow-up with neurology Prednisone 10 mg Dosepak for 6 days Disposition: DC-01 TO HOME OR SELFCARE Core Measure Documentation - Palliative Care Palliative Care/ Comfort Measures: Not Applicable - Core Measures Any of the following diagnoses?: none Exam - Constitutional Vitals: Temp Pulse Resp BP Pulse Ox 68 12 119/89 98 06/06/20 14:00 06/06/20 14:00 06/06/20 14:00 06/06/20 14:00 General appearance: Present: no acute distress, well-nourished - EENT Eyes: Present: PERRL ENT: hearing intact, clear oral mucosa - Neck Neck: Present: supple, normal ROM - Respiratory Respiratory effort: normal Respiratory: bilateral: CTA - Cardiovascular Heart rate: 78 Rhythm: regular Heart Sounds: Present: S1 & S2. Absent: rub, click - Extremities Extremities: pulses symmetrical, No edema Peripheral Pulses: within normal limits - Abdominal General gastrointestinal: Present: soft, non-tender, non-distended, normal bowel sounds Male genitourinary: Present: normal - Integumentary Integumentary: Present: clear, warm, dry - Musculoskeletal Musculoskeletal: gait normal, strength equal bilaterally - Psychiatric Psychiatric: appropriate mood/affect, intact judgment & insight - Neurologic Neurologic: CNII-XII intact, moves all extremities - Allied Health Allied health notes reviewed: nursing, case management Plan Activity: no restrictions Diet: regular Follow up with: DC LOGAN MD [Staff Physician] - 3-5 Days RENALDO MANCINI MD [Referring] - 3-5 Days PRIMARY MD ERNESTINA [Primary Care Provider] - 3-5 Days
[2020-06-06 15:22] VITALS: BP 129/95
== END 2020-06-06 15:22 | disposition home or self-care (01) ==
LOC: ED 10:47
DX: G51.0 Bell's palsy (principal); E11.9 Type 2 diabetes mellitus without complications; Z79.899 Other long term (current) drug therapy
CPT/HCPCS: 36415; 70450; 71046; 80053; 81001; 82962; 83735; 84484; 85025; 85610; 93005

== ENCOUNTER 2020-12-09 08:24 | Outpatient (CLI) | payer BC ==
[2020-12-09 08:51] LABS: Bilirubin,Urine NEG (Negative); Blood,Urine NEG (Negative); Color,Urine Yellow (Yellow); Protein,Urine <15 mg/dL mg/dL (Negative); Urobilinogen,Urine < 2.0 mg/dL (<2.0); WBC,Urine < 1.0 /HPF (0.0-6.0)
[2020-12-09 08:56] LABS: Hemoglobin 14.8 gm/dl (11.8-15.2); Mean Corpuscular HGB Conc 35 % (32-34); Mean Corpuscular Volume 79 fl (84-94); Platelet Count 213 K/mm3 (140-440); Red Cell Distribution Width 14.5 % (13.2-15.2)
[2020-12-09 09:18] LABS: Alanine Aminotransferase 23 units/L (7-56); Albumin 4.6 g/dL (3.9-5); Blood Urea Nitrogen 11 mg/dL (9-20); Calcium 9.7 mg/dL (8.4-10.2); Chol/HDL Ratio 3.41 %; HDL Cholesterol 39 mg/dL (40-59); Hemolysis Index 6; LDL Cholesterol,Direct 82 mg/dL (50-130)
[2020-12-09 09:34] LABS: BUN/Creatinine Ratio 18
[2020-12-09 10:00] LABS: RBC,Urine < 1.0 /HPF (0.0-6.0)
[2020-12-09 13:07] LABS: Total Cells Counted 100
[2020-12-09 13:08] LABS: Platelet Estimate Consistent w Auto; RBC Morphology Normal
[2020-12-12 19:02] LABS: Vitamin D, 25-OH, D2 <4 ng/mL
== END 2020-12-09 08:25 | disposition home or self-care (01) ==
LOC: LAB 08:24
PROVIDERS: ATTEND Internal Medicine
DX: Z00.00 Encounter for general adult medical examination without abnormal findings (principal); E11.9 Type 2 diabetes mellitus without complications; E78.5 Hyperlipidemia, unspecified; Z13.29 Encounter for screening for other suspected endocrine disorder; E55.9 Vitamin D deficiency, unspecified; N39.0 Urinary tract infection, site not specified; D51.9 Vitamin B12 deficiency anemia, unspecified
CPT/HCPCS: 36415; 80053; 80061; 81001; 82306; 82607; 83036; 84443; 85007; 85025

== ENCOUNTER 2021-04-04 03:15 | Observation (INO) | payer BC ==
--- NOTE | 2021-04-04 03:43 | Emergency Department Report ---
ED Chest Pain HPI - General Chief Complaint: Chest Pain Stated Complaint: CHEST PAIN Time Seen by Provider: 04/04/21 03:30 Source: patient Mode of arrival: Ambulatory Limitations: Language Barrier - History of Present Illness Initial Comments: Chief complaint: Chest pain HPI: This is a 45-year-old male with history of coronary disease status post cardiac stent, diabetes mellitus, hypertension, dyslipidemia who presents with chest pain which began several hours ago. He has a sticking sensation left side with left arm numbness. He takes nitroglycerin daily. Acetaminophen helps the pain. He is not followed by flosser. He has associated shortness of breath. Patient underwent left heart cardiac catheterization: Patient had stent placement in mid LAD, patient has severe RCA lesion and considered nondominated vessel. Medical therapy recommended. Ukrainian interpretation provided by care team assistant at the bedside MD Complaint: chest pain -: Gradual, hour(s) (Several hours this afternoon this evening) Onset: during rest Pain Location: left chest Pain Radiation: LUE Severity: moderate Severity scale (0 -10): 6 Quality: sharp Consistency: intermittent Improves With: nitroglycerin Worsens With: nothing re: dyspnea, other (Left arm numbness) Treatments Prior to Arrival: none - Related Data Previous Rx's Medication Instructions Recorded Last Taken Type Butalb/Acetamin/Caff 50-325-40 2 tab PO Q6HR PRN #40 tab 04/01/17 Unknown Rx [Fioricet 50-325-40] Prochlorperazine [Compazine] 10 mg PO Q8HR PRN #20 tablet 04/01/17 Unknown Rx Aspirin EC [Halfprin EC] 81 mg PO QDAY #30 tablet. 04/04/17 Unknown Rx HYDROcodone/APAP 5-325 [[place] 1 each PO Q6HR PRN #12 tablet 04/04/17 Unknown Rx 5-325 mg TAB] Ondansetron [Zofran ODT TAB] 4 mg PO Q8HR PRN #10 tab.rapdis 04/04/17 Unknown Rx Sodium Chloride [Saline Nasal 1 - 2 sprays NS PRN PRN #1 bottle 11/12/18 Unknown Rx [place]] Aspirin EC [Ecotrin] 325 mg PO QDAY #30 tablet 09/08/20 Unknown Rx AtorvaSTATin [Lipitor] 80 mg PO QHS #60 tablet 09/08/20 Unknown Rx Clopidogrel [Plavix] 75 mg PO QDAY #30 tablet 09/08/20 Unknown Rx Diabetic Supplies,Miscell [Cequr 1 each MC TID #1 miscell 09/08/20 Unknown Rx [employer]] Insulin NPH/Regular [NovoLIN 70/30] 15 unit SUB-Q BIDDIAB #1 vial 09/08/20 Unknown Rx traMADoL [Ultram 50 MG tab] 50 mg PO Q6H PRN #14 tablet 09/08/20 Unknown Rx Allergies Allergy/AdvReac Type Severity Reaction Status Date / Time No Known Allergies Allergy Verified 04/03/17 13:52 Heart Score - HEART Score History: Highly suspicious EKG: Normal Age: 45-65 Risk factors: > 3 risk factors or hx of atherosclerotic disease Troponin: < normal limit HEART Score: 5 - EKG Read Time Time EKG Completed: 03:30 EKG Read Time: 03:30 - Critical Actions Critical Actions: 4-6 pts:12-16.6% risk of adverse cardiac event. Should be adm itted ED Review of Systems ROS: Stated complaint: CHEST PAIN Other details as noted in HPI Comment: All other systems reviewed and negative Constitutional: denies: chills, fever, malaise Respiratory: shortness of breath. denies: cough Cardiovascular: chest pain Gastrointestinal: denies: abdominal pain, nausea Musculoskeletal: denies: back pain ED Past Medical Hx - Past Medical History Previous Medical History?: Yes Hx Heart Attack/AMI: Yes Hx Diabetes: Yes Additional medical history: Hyperlipidemia - Surgical History Past Surgical History?: Yes Additional Surgical History: stents - Social History Smoking Status: Former Smoker Substance Use Type: None - Medications Home Medications: Home Medications Medication Instructions Recorded Confirmed Last Taken Type Butalb/Acetamin/Caff 50-325-40 2 tab PO Q6HR PRN #40 tab 04/01/17 09/06/20 Unknown Rx [Fioricet 50-325-40] Prochlorperazine [Compazine] 10 mg PO Q8HR PRN #20 tablet 04/01/17 09/06/20 Unknown Rx Aspirin EC [Halfprin EC] 81 mg PO QDAY #30 tablet. 04/04/17 09/06/20 Unknown Rx HYDROcodone/APAP 5-325 [[place] 1 each PO Q6HR PRN #12 tablet 04/04/17 09/06/20 Unknown Rx 5-325 mg TAB] Ondansetron [Zofran ODT TAB] 4 mg PO Q8HR PRN #10 tab.rapdis 04/04/17 09/06/20 Unknown Rx Sodium Chloride [Saline Nasal 1 - 2 sprays NS PRN PRN #1 bottle 11/12/18 09/06/20 Unknown Rx [place]] Aspirin EC [Ecotrin] 325 mg PO QDAY #30 tablet 09/08/20 Unknown Rx AtorvaSTATin [Lipitor] 80 mg PO QHS #60 tablet 09/08/20 Unknown Rx Clopidogrel [Plavix] 75 mg PO QDAY #30 tablet 09/08/20 Unknown Rx Diabetic Supplies,Miscell [Cequr 1 each MC TID #1 miscell 09/08/20 Unknown Rx [employer]] Insulin NPH/Regular [NovoLIN 70/30] 15 unit SUB-Q BIDDIAB #1 vial 09/08/20 Unknown Rx traMADoL [Ultram 50 MG tab] 50 mg PO Q6H PRN #14 tablet 09/08/20 Unknown Rx ED Physical Exam - General Limitations: Language Barrier General appearance: alert, in no apparent distress - Head Head exam: Present: atraumatic, normocephalic - Eye Eye exam: Present: normal appearance - ENT ENT exam: Present: mucous membranes moist - Neck Neck exam: Present: normal inspection, full ROM - Respiratory Respiratory exam: Present: normal lung sounds bilaterally. Absent: respiratory distress, wheezes, rales, rhonchi - Cardiovascular Cardiovascular Exam: Present: regular rate, normal rhythm, normal heart sounds. Absent: systolic murmur, diastolic murmur, rubs, gallop - GI/Abdominal GI/Abdominal exam: Present: soft, normal bowel sounds. Absent: distended, tenderness, guarding, rebound - Rectal Rectal exam: Present: deferred - Extremities Exam Extremities exam: Present: normal inspection - Neurological Exam Neurological exam: Present: alert, oriented X3 - Psychiatric Psychiatric exam: Present: normal affect, normal mood - Skin Skin exam: Present: warm, dry, intact, normal color. Absent: rash ED Course Vital Signs 04/04/21 04/04/21 03:27 06:03 Temperature 97.9 F Pulse Rate 68 68 Respiratory 18 20 Rate Blood Pressure 168/95 Blood Pressure 119/81 [Right] O2 Sat by Pulse 100 98 Oximetry CIARA score - Ciara Score Age > 65: (0) No Aspirin use within the Past 7 Days: (1) Yes 3 or more CAD Risk Factors: (1) Yes 2 or more Angina events in past 24 hrs: (1) Yes Known CAD with more than 50% Stenosis: (0) No Elevated Cardiac Markers: (1) Yes ST Deviation Greater than 0.5mm: (1) Yes CIARA Score: 5 ED Medical Decision Making - Lab Data Result diagrams: 04/04/21 04:34 04/04/21 04:34 - EKG Data -: EKG Interpreted by Me EKG shows normal: sinus rhythm, axis, intervals, QRS complexes, ST-T waves Rate: normal - EKG Data Interpretation: normal EKG 04/04/21 03:43 EKG obtained 0330 EKG interpreted by me Normal sinus rhythm normal rate normal axis normal intervals no ST elevation no ST-T signs of ischemia normal EKG - Radiology Data Radiology results: report reviewed Chest radiographs: Personal interpretation 2 view PA lateral No acute findings, normal mediastinum, normal course of breath, no pneumothorax, no infiltrate - Medical Decision Making Acute coronary syndrome/unstable angina with chest pain at rest: History of multivessel disease with severe RCA lesion. Admitted to the hospitalist service Work-up notable for negative troponin hyperglycemia. Critical care attestation.: If time is entered above; I have spent that time in minutes in the direct care of this critically ill patient, excluding procedure time. ED Disposition Clinical Impression: Acute coronary syndrome Disposition: 09 ADMITTED INPATIENT Is pt being admited?: Yes Does the pt Need Aspirin: No Condition: Stable
[2021-04-04 04:48] LABS: Hemoglobin 14.1 gm/dl (11.8-15.2); Mean Corpuscular HGB Conc 34 % (32-34); Mean Corpuscular Volume 82 fl (84-94); Platelet Count 233 K/mm3 (140-440); Red Blood Count 5.12 M/mm3 (3.65-5.03); Red Cell Distribution Width 13.6 % (13.2-15.2)
--- NOTE | 2021-04-04 05:06 | History and Physical Report ---
History of Present Illness Date of examination: 04/04/21 Date of admission: 04/04/21 Chief complaint: chest pain History of present illness: This is a 45-year-old male seen in ED at bedside. Patient came to the emergency room with chief complaint of chest pain. Patient has history of coronary disease status post cardiac stent, diabetes mellitus, hypertension, and dyslipidemia. He has a sticking sensation left side with left arm numbness. He takes nitroglycerin daily. Patient denies alcohol use, tobacco use, and illicit drug use. Reviewed medication records, history and physical, and vital signs. Cardiology has been consulted echocardiogram ordered. Past History Past Medical History: CAD, diabetes, hypertension, hyperlipidemia, other (CAD with stents placement) Past Surgical History: Other (Stents placed) Social history: no significant social history Medications and Allergies Allergies Allergy/AdvReac Type Severity Reaction Status Date / Time No Known Allergies Allergy Verified 04/03/17 13:52 Home Medications Medication Instructions Recorded Confirmed Last Taken Type Butalb/Acetamin/Caff 50-325-40 2 tab PO Q6HR PRN #40 tab 04/01/17 09/06/20 Unknown Rx [Fioricet 50-325-40] Prochlorperazine [Compazine] 10 mg PO Q8HR PRN #20 tablet 04/01/17 09/06/20 Unknown Rx Aspirin EC [Halfprin EC] 81 mg PO QDAY #30 tablet.dr 04/04/17 09/06/20 Unknown Rx HYDROcodone/APAP 5-325 [[place] 1 each PO Q6HR PRN #12 tablet 04/04/17 09/06/20 Unknown Rx 5-325 mg TAB] Ondansetron [Zofran ODT TAB] 4 mg PO Q8HR PRN #10 tab.rapdis 04/04/17 09/06/20 Unknown Rx Sodium Chloride [Saline Nasal 1 - 2 sprays NS PRN PRN #1 bottle 11/12/18 09/06/20 Unknown Rx [place]] Aspirin EC [Ecotrin] 325 mg PO QDAY #30 tablet 09/08/20 Unknown Rx AtorvaSTATin [Lipitor] 80 mg PO QHS #60 tablet 09/08/20 Unknown Rx Clopidogrel [Plavix] 75 mg PO QDAY #30 tablet 09/08/20 Unknown Rx Diabetic Supplies,Miscell [Cequr 1 each MC TID #1 miscell 09/08/20 Unknown Rx [employer]] Insulin NPH/Regular [NovoLIN 70/30] 15 unit SUB-Q BIDDIAB #1 vial 09/08/20 Unknown Rx traMADoL [Ultram 50 MG tab] 50 mg PO Q6H PRN #14 tablet 09/08/20 Unknown Rx Review of Systems Cardiovascular: chest pain, high blood pressure Gastrointestinal: other, no nausea, no vomiting, no melena Rectal: no itching, no hemorrhoids Integumentary: no rash, no pruritis, no redness Hematologic/Lymphatic: easy bruising, easy bleeding, no lymphadenopathy, no lymphedema Allergic/Immunologic: urticaria Exam - Constitutional Vitals: Temp Pulse Resp BP Pulse Ox 97.9 F 68 18 168/95 100 04/04/21 03:27 04/04/21 03:27 04/04/21 03:27 04/04/21 03:27 04/04/21 03:27 General appearance: Present: mild distress, well-nourished - EENT Eyes: Present: PERRL ENT: hearing intact, clear oral mucosa - Neck Neck: Present: supple, normal ROM - Respiratory Respiratory effort: normal Respiratory: bilateral: CTA - Cardiovascular Heart Sounds: Present: S1 & S2. Absent: rub, click - Extremities Extremities: pulses symmetrical, No edema Peripheral Pulses: within normal limits - Abdominal General gastrointestinal: Present: soft, non-tender, non-distended, normal bowel sounds Male genitourinary: Present: normal - Integumentary Integumentary: Present: clear, warm, dry - Musculoskeletal Musculoskeletal: gait normal, strength equal bilaterally - Psychiatric Psychiatric: appropriate mood/affect, intact judgment & insight, cooperative - Neurologic Neurologic: CNII-XII intact, moves all extremities - Allied Health Allied health notes reviewed: nursing HEART Score - HEART Score EKG: Normal Age: 45-65 Risk factors: > 3 risk factors or hx of atherosclerotic disease Troponin: < normal limit - Critical Actions Critical Actions: 4-6 pts:12-16.6% risk of adverse cardiac event. Should be admitted Results - Labs CBC & Chem 7: 04/04/21 04:34 04/04/21 04:34 Labs: Abnormal lab results 04/04/21 Range/Units 04:34 RBC 5.12 H (3.65-5.03) M/mm3 MCV 82 L (84-94) fl Assessment and Plan - Patient Problems (1) Acute coronary syndrome Current Visit: Yes Status: Acute Plan to address problem: Patient has history of CAD with stent placement Cardiology has been consulted Echocardiogram follow-up with results Continue antiplatelet (2) Chest pain Current Visit: No Status: Acute Qualifiers: Chest pain type: unspecified Qualified Code(s): R07.9 - Chest pain, unspecified Plan to address problem: Cardioprotective measures Antiplatelet, BB, and statin Echocardiogram follow-up with results Cardiology consult (3) Diabetes mellitus Current Visit: No Status: Acute Qualifiers: Diabetes mellitus type: type 2 Diabetes mellitus chcf insulin use: without chcf use Diabetes mellitus complication status: with circulatory complication Diabetes mellitus complication detail: with other circulatory complications Qualified Code(s): E11.59 - Type 2 diabetes mellitus with other circulatory complications Plan to address problem: Monitor blood sugar with sliding scale protocol Check hemoglobin A1c (4) HLD (hyperlipidemia) Current Visit: No Status: Chronic Qualifiers: Hyperlipidemia type: mixed hyperlipidemia Qualified Code(s): E78.2 - Mixed hyperlipidemia Plan to address problem: Resume home statin (5) HTN (hypertension) Current Visit: No Status: Chronic Qualifiers: Hypertension type: essential hypertension Plan to address problem: Monitor blood pressure Resume home antihypertensive Hydralazine as needed (6) DVT prophylaxis Current Visit: No Status: Acute Plan to address problem: Lovenox
[2021-04-04 05:07] LABS: Alanine Aminotransferase 24 units/L (7-56); Albumin 4.3 g/dL (3.9-5); Blood Urea Nitrogen 14 mg/dL (9-20); Calcium 8.9 mg/dL (8.4-10.2); Hemolysis Index 8
[2021-04-04] MEDS ORDERED: traMADol 50 MG TAB PO PRN ×2 (05:15→06:35)
[2021-04-04] MEDS ORDERED: PROCHLORPERAZINE MALEATE 10 MG TAB PO PRN (05:15)
[2021-04-04 05:16] LABS: BUN/Creatinine Ratio 23
[2021-04-04] MEDS ORDERED: hydrALAZINE 20 MG/1 ML INJ IV PRN (05:19)
[2021-04-04 05:26] LABS: Band Neutrophils # (Manual) 0.1 K/mm3; Platelet Estimate Consistent w Auto; RBC Morphology Normal; Total Cells Counted 100
[2021-04-04] MEDS ORDERED: NITROGLYCERIN 0.4 MG TAB SUBL SL PRN (06:35)
[2021-04-04] MEDS ORDERED: ACETAMINOPHEN 325 MG TAB PO PRN ×2 (06:35)
[2021-04-04] MEDS ORDERED: NALOXONE 0.4 MG/1 ML INJ IV PRN (06:35)
[2021-04-04] MEDS ORDERED: oxyCODONE /ACETAMINOPHEN 5-325MG TAB PO PRN (06:35)
[2021-04-04] MEDS ORDERED: ALUM-MAG HYDROXIDE-SIMETHICONE 200-200-20MG/5ML ORAL LIQD 30 ML PO PRN (06:35)
[2021-04-04] MEDS ORDERED: SENNOSIDES 8.6 MG TAB PO PRN (06:35)
[2021-04-04] MEDS ORDERED: ONDANSETRON 4 MG/2 ML INJ IV PRN (06:35)
[2021-04-04] MEDS ORDERED: MAGNESIUM HYDROXIDE (MOM) ORAL LIQD UDC PO PRN (06:35)
[2021-04-04] MEDS ORDERED: METOCLOPRAMIDE 10 MG/2 ML INJ IV PRN (06:35)
[2021-04-04] MEDS ORDERED: MORPHINE 2 MG/1 ML INJ IV PRN (06:35)
[2021-04-04 07:33] LABS: Hematocrit 40.1 % (35.5-45.6); Hemoglobin 13.8 gm/dl (11.8-15.2); Mean Corpuscular HGB Conc 34 % (32-34); Mean Corpuscular Volume 82 fl (84-94); Platelet Count 221 K/mm3 (140-440); Red Cell Distribution Width 13.8 % (13.2-15.2)
[2021-04-04 07:47] LABS: Blood Urea Nitrogen 13 mg/dL (9-20); Hemolysis Index 5
[2021-04-04 08:03] LABS: BUN/Creatinine Ratio 22
[2021-04-04] MEDS: INSULIN LISPRO 100 UNIT/ML SUB-Q SCH ×4 (08:28→23:18)
--- NOTE | 2021-04-04 09:11 | XRay Report ---
CHEST 2 VIEWS INDICATION / CLINICAL INFORMATION: Shortness of breath and chest pain. COMPARISON: 09/05/20. FINDINGS: SUPPORT DEVICES: None. HEART / MEDIASTINUM: The heart size and pulmonary vasculature are normal. LUNGS / PLEURA: No significant pulmonary or pleural abnormality. No pneumothorax. ADDITIONAL FINDINGS: An 8.4 cm low-grade cartilaginous lesion in the right proximal humerus is stable . IMPRESSION: No acute abnormality or significant change. Signer Name: Adam Raza MD Signed: 04/04/2021 9:06 AM Workstation Name: [id number]
--- NOTE | 2021-04-04 09:18 | Event Note ---
Date: 04/04/21 This is a follow-up from an admission earlier this morning. We will continue to plan as outlined in the H&P. Patient seen and examined. Continue beta-shamar, statin and aspirin. Await cardiology consultation. Total visit time equals 35 minutes with greater than 50% spent on coordination of care and counseling
[2021-04-04] MEDS ORDERED: ENOXAPARIN 40 MG/0.4 ML INJ SUB-Q SCH (10:00)
[2021-04-04 10:13] LABS: Total Cells Counted 100
[2021-04-04 10:14] LABS: Platelet Estimate Consistent w Auto; RBC Morphology Normal
[2021-04-04] MEDS: metFORMIN 500 MG TAB PO SCH ×2 (10:42→17:52)
[2021-04-04] MEDS: ASPIRIN EC 81 MG TAB PO SCH (10:42)
[2021-04-04] MEDS: CLOPIDOGREL 75 MG TAB PO SCH (10:42)
[2021-04-04] MEDS: INSULIN NPH/REGULAR 70/30 INJ SUB-Q SCH ×2 (10:43→17:53)
[2021-04-04] MEDS: glipiZIDE 5 MG TAB PO SCH ×2 (10:44→17:53)
--- NOTE | 2021-04-04 13:16 | Consultation ---
History of Present Illness Consult date: 04/04/21 Consult reason: chest pain History of present illness: Mr. Rae a 45 years old male with history of CAD s/p PCI to mLAD in 09/2020, HTN ,HLD, DM presented with chest pain. Patient reported that he had one episode of chest pain at his left-chest last night when he was watching TV, a/w left arm tingling; The pain last about 5 minutes and resolved. But he still feels some tingling at his left arm. No recurrent pain. He stated that the pain had last night is less severe and different with the chest pain in He has been compliant with his medicines since the stent placed in 09/2020. Denied shortness of breath, palpitation or syncope. Denied family history of CAD. Past History Past Medical History: CAD, diabetes, hypertension, hyperlipidemia, other (CAD with stents placement) Past Surgical History: Other (Stents placed) Social history: no significant social history Medications and Allergies Allergies Allergy/AdvReac Type Severity Reaction Status Date / Time No Known Allergies Allergy Verified 04/03/17 13:52 Home Medications Medication Instructions Recorded Confirmed Last Taken Type Butalb/Acetamin/Caff 50-325-40 2 tab PO Q6HR PRN #40 tab 04/01/17 09/06/20 Unknown Rx [Fioricet 50-325-40] Prochlorperazine [Compazine] 10 mg PO Q8HR PRN #20 tablet 04/01/17 04/04/21 Unknown Rx Aspirin EC [Halfprin EC] 81 mg PO QDAY #30 tablet. 04/04/17 04/04/21 04/04/21 Rx 81 HYDROcodone/APAP 5-325 [[place] 1 each PO Q6HR PRN #12 tablet 04/04/17 09/06/20 Unknown Rx 5-325 mg TAB] Ondansetron [Zofran ODT TAB] 4 mg PO Q8HR PRN #10 tab.gregor 04/04/17 04/04/21 Unknown Rx Sodium Chloride [Saline Nasal 1 - 2 sprays NS PRN PRN #1 bottle 11/12/18 04/04/21 Unknown Rx [place]] Aspirin EC [Ecotrin] 325 mg PO QDAY #30 tablet 09/08/20 04/04/21 Rx AtorvaSTATin [Lipitor] 80 mg PO QHS #60 tablet 09/08/20 04/04/21 04/03/21 21:00 Rx Clopidogrel [Plavix] 75 mg PO QDAY #30 tablet 09/08/20 04/04/21 04/04/21 10:00 Rx 75 Diabetic Supplies,Miscell [Cequr 1 each MC TID #1 miscell 09/08/20 Unknown Rx [employer]] Insulin NPH/Regular [NovoLIN 70/30] 15 unit SUB-Q BIDDIAB #1 vial 09/08/20 04/04/21 04/04/21 08:30 Rx 15 traMADoL [Ultram 50 MG tab] 50 mg PO Q6H PRN #14 tablet 09/08/20 04/04/21 Un known Rx Active Meds: Active Medications Acetaminophen (Acetaminophen 325 Mg Tab) 650 mg PO Q4H PRN PRN Reason: Pain MILD(1-3)/Fever >100.5/QUINN Al Hydrox/Mg Hydrox/Simethicone (Alum-Mag Hydroxide-Simethicone [phone]/5ml Oral Liqd 30 Ml) 30 ml PO Q4H PRN PRN Reason: Indigestion Aspirin (Aspirin Ec 81 Mg Tab) 81 mg PO QDAY [facility] Last Admin: 04/04/21 10:42 Dose: 81 mg Documented by: Atorvastatin Calcium (Atorvastatin 40 Mg Tab) 80 mg PO QHS [facility] Clopidogrel Bisulfate (Clopidogrel 75 Mg Tab) 75 mg PO QDAY [facility] Last Admin: 04/04/21 10:42 Dose: 75 mg Documented by: Enoxaparin Sodium (Enoxaparin 40 Mg/0.4 Ml Inj) 40 mg SUB-Q QDAY [facility]; Protocol Last Admin: 04/04/21 10:44 Dose: 40 mg Documented by: Glipizide (Glipizide 5 Mg Tab) 5 mg PO BIDDIAB [facility] Last Admin: 04/04/21 10:44 Dose: 5 mg Documented by: Hydralazine HCl (Hydralazine 20 Mg/1 Ml Inj) 5 mg IV Q4H PRN PRN Reason: Hypertension Insulin Human Isoph/Insulin Regular (Insulin Nph/Regular 70/30 Inj) 15 unit SUB-Q BIDDIAB [facility] Last Admin: 04/04/21 10:43 Dose: 15 unit Documented by: Insulin Human Lispro (Insulin Lispro 100 Unit/Ml) 0 unit SUB-Q ACHS [facility]; Protocol Last Admin: 04/04/21 08:28 Dose: 3 unit Documented by: Magnesium Hydroxide (Magnesium Hydroxide (Mom) Oral Liqd Udc) 30 ml PO Q4H PRN PRN Reason: Constipation Metformin HCl (Metformin 500 Mg Tab) 500 mg PO BIDDIAB [facility] Last Admin: 04/04/21 10:42 Dose: 500 mg Documented by: Metoclopramide HCl (Metoclopramide 10 Mg/2 Ml Inj) 10 mg IV Q6H PRN PRN Reason: Nausea And Vomiting Morphine Sulfate (Morphine 2 Mg/1 Ml Inj) 2 mg IV Q4H PRN PRN Reason: Pain, Moderate (4-6) Naloxone HCl (Naloxone 0.4 Mg/1 Ml Inj) 0.1 mg IV Q2MIN PRN PRN Reason: Res Rate </= 8 or 02 SAT < 92% Nitroglycerin (Nitroglycerin 0.4 Mg Tab Subl) 0.4 mg SL Q5M PRN PRN Reason: Chest Pain Ondansetron HCl (Ondansetron 4 Mg/2 Ml Inj) 4 mg IV Q8H PRN PRN Reason: Nausea And Vomiting Oxycodone/Acetaminophen (Oxycodone /Acetaminophen 5-325mg Tab) 1 tab PO Q6H PRN PRN Reason: Pain, Moderate (4-6) Prochlorperazine Maleate (Prochlorperazine Maleate 10 Mg Tab) 10 mg PO Q8H PRN PRN Reason: Nausea Senna (Sennosides 8.6 Mg Tab) 8.6 mg PO Q12HR PRN PRN Reason: Constipation Sodium Chloride (Sodium Chloride 0.9% 10 Ml Flush Syringe) 10 ml IV BID [facility] Last Admin: 04/04/21 10:45 Dose: 10 ml Documented by: Sodium Chloride (Sodium Chloride 0.9% 10 Ml Flush Syringe) 10 ml IV PRN PRN PRN Reason: LINE FLUSH Tramadol HCl (Tramadol 50 Mg Tab) 50 mg PO Q6H PRN PRN Reason: Pain, Moderate (4-6) Physical Examination Vital Signs Temp Pulse Resp BP Pulse Ox 97.9 F 68 18 168/95 100 04/04/21 03:27 04/04/21 03:27 04/04/21 03:27 04/04/21 03:27 04/04/21 03:27 General appearance: no acute distress Neck: Positive: neck supple. Negative: JVD/HJR Cardiac: Positive: Reg Rate and Rhythm, S1/S2 Lungs: Positive: Normal Exam Neuro: Positive: Grossly Intact Extremities: Absent: edema Results 04/04/21 07:19 04/04/21 07:19 Cardiac Enzymes 04/04/21 Range/Units 04:34 AST 13 (5-40) units/L CBC 04/04/21 04/04/21 Range/Units 04:34 07:19 WBC 7.1 6.4 (4.5-11.0) K/mm3 RBC 5.12 H 4.90 (3.65-5.03) M/mm3 Hgb 14.1 13.8 (11.8-15.2) gm/dl Hct 42.0 40.1 (35.5-45.6) % Plt Count 233 221 (140-440) K/mm3 Comprehensive Metabolic Panel 04/04/21 04/04/21 Range/Units 04:34 07:19 Sodium 134 L 134 L (137-145) mmol/L Potassium 4.4 4.7 (3.6-5.0) mmol/L Chloride 98.9 99.7 (98-107) mmol/L Carbon Dioxide 25 23 (22-30) mmol/L BUN 14 13 (9-20) mg/dL Creatinine 0.6 L 0.6 L (0.8-1.3) mg/dL Glucose 370 H 302 H (75-100) mg/dL Calcium 8.9 9.0 (8.4-10.2) mg/dL AST 13 (5-40) units/L ALT 24 (7-56) units/L Alkaline Phosphatase 110 (35-129) units/L Total Protein 7.5 (6.3-8.2) g/dL Albumin 4.3 (3.9-5) g/dL Assessment and Plan # Chest pain # CAD s/p PCI Onxyn 3 x 15 mm WILLY to mLAD in 09/2020 in setting of ACS - No active chest pain; - ecg showed sinus rhythm, no acute ischemia ST-T change - Troponin x2 negative - Recommend to continue home DAPT, statin - Echo pending to assess his LVEF and WMA; previous echo in 09/2020 showed mildl y reduced LVEF 45% with LVH. - LHC in 09/2020 showed non-dominant RCA >70% stenosis but no intervention because it is a non-dominant; Recommend stress test on Monday morning if patient remain medical stable (ordered for you). - c/w tele monitor; No need to start heparin gtt if tropnin remain negative, no ecg change or chest pain. Thanks for consult, we will continue to follow.
[2021-04-04 16:25] LABS: Bilirubin,Urine NEG (Negative); Blood,Urine NEG (Negative); Color,Urine Yellow (Yellow); Protein,Urine <15 mg/dL mg/dL (Negative); Urobilinogen,Urine < 2.0 mg/dL (<2.0); WBC,Urine < 1.0 /HPF (0.0-6.0)
[2021-04-05 06:16] LABS: Basophils # (Auto) 0.1 K/mm3 (0.0-0.1); Basophils % (Auto) 0.7 % (0.0-1.8); Eosinophils # (Auto) 1.1 K/mm3 (0.0-0.4); Eosinophils % (Auto) 14.4 % (0.0-4.3); Hematocrit 41.6 % (35.5-45.6); Hemoglobin 13.9 gm/dl (11.8-15.2); Lymphocytes # (Auto) 2.1 K/mm3 (1.2-5.4); Lymphocytes % (Auto) 28.8 % (13.4-35.0); Mean Corpuscular HGB Conc 33 % (32-34); Mean Corpuscular Volume 81 fl (84-94); Monocytes # (Auto) 0.4 K/mm3 (0.0-0.8); Monocytes % (Auto) 5.4 % (0.0-7.3); Platelet Count 228 K/mm3 (140-440); Red Blood Count 5.15 M/mm3 (3.65-5.03); Red Cell Distribution Width 13.8 % (13.2-15.2)
[2021-04-05 06:36] LABS: Alanine Aminotransferase 25 units/L (7-56); Albumin 3.9 g/dL (3.9-5); Blood Urea Nitrogen 15 mg/dL (9-20); Calcium 8.6 mg/dL (8.4-10.2); Hemolysis Index 5
[2021-04-05 06:39] LABS: BUN/Creatinine Ratio 25
[2021-04-05] MEDS ORDERED: REGADENOSON 0.4 MG/5 ML INJ IV ONE ×2 (06:54→13:59)
--- NOTE | 2021-04-05 07:57 | Discharge Summary ---
Providers - Providers Date of Admission: 04/04/21 06:06 Date of discharge: 04/05/21 Attending physician: JACK SILVERIO 04/04/21 Consult to Cardiac Rehabilitation [CONS] Routine Reason For Exam: Phase I 04/04/21 05:11 Consult to Physician [CONS] Routine Comment: Consulting Provider: AMIE SHAH Physician Instructions: Reason For Exam: chest pain Primary care physician: BAND SAW FILER Hospitalization Reason for admission: cp Condition: Stable Hospital course: This is a 45-year-old male with past medical history of coronary artery disease status post cardiac stent PCI to mLAD in 09/2020, diabetes mellitus type 2, hypertension and dyslipidemia presented to the emergency room with chief c omplaint of chest pain. The patient described the pain as a sticking sensation on the left side with left arm numbness. The patient reportedly takes nitroglycerin daily. Patient denied alcohol use, tobacco use, and illicit drug use. The patient was admitted with diagnosis of chest pain, diabetes mellitus type 2, hypertension, dyslipidemia and CAD. EKG revealed normal sinus rhythm with no acute ischemic ST-T wave changes. Troponin was negative. Cardiology saw the patient in consultation and recommended home DAPT and statin. The patient is to undergo echocardiogram and stress test this morning and if found to be negative will likely discharge home this afternoon. Dedicated discharge time 32 minutes. Disposition: 01 HOME / SELF CARE / HOMELESS Final Discharge Diagnosis (Prints w/discharge instructions): Coronary artery disease, chest pain with etiology likely secondary to GERD, hypertension, diabetes mellitus type 2 Core Measure Documentation - Palliative Care Palliative Care/ Comfort Measures: Not Applicable - Core Measures Any of the following diagnoses?: none Exam - Constitutional Vitals: Temp Pulse Resp BP Pulse Ox 97.4 F L 69 16 120/82 97 04/05/21 03:37 04/05/21 03:37 04/05/21 03:37 04/05/21 03:37 04/05/21 03:37 General appearance: Present: no acute distress, well-nourished - EENT Eyes: Present: PERRL ENT: hearing intact, clear oral mucosa - Neck Neck: Present: supple, normal ROM - Respiratory Respiratory effort: normal Respiratory: bilateral: CTA - Cardiovascular Heart Sounds: Present: S1 & S2. Absent: rub, click - Extremities Extremities: pulses symmetrical, No edema Peripheral Pulses: within normal limits - Abdominal General gastrointestinal: Present: soft, non-tender, non-distended, normal bowel sounds Male genitourinary: Present: normal - Integumentary Integumentary: Present: clear, warm, dry - Musculoskeletal Musculoskeletal: gait normal, strength equal bilaterally - Psychiatric Psychiatric: appropriate mood/affect, intact judgment & insight - Neurologic Neurologic: CNII-XII intact, moves all extremities Plan Activity: advance as tolerated Weight Bearing Status: Weight Bear as Tolerated Diet: low fat, low cholesterol, low salt, diabetic Follow up with: PRIMARY CARE, [Primary Care Provider] - 7 Days YANET PARIKH MD [Staff Physician] - 7 Days Prescriptions: Aspirin EC [Halfprin EC] 81 mg PO QDAY #30 tablet. AtorvaSTATin [Lipitor] 80 mg PO QHS #60 tablet Clopidogrel [Plavix] 75 mg PO QDAY #30 tablet
[2021-04-05] MEDS: INSULIN LISPRO 100 UNIT/ML SUB-Q SCH ×2 (08:05→13:20)
[2021-04-05] MEDS: INSULIN NPH/REGULAR 70/30 INJ SUB-Q SCH (08:10)
[2021-04-05] MEDS: metFORMIN 500 MG TAB PO SCH ×2 (08:10→13:20)
[2021-04-05] MEDS: glipiZIDE 5 MG TAB PO SCH ×2 (08:10→13:20)
[2021-04-05 12:29] VITALS: BP 122/88
[2021-04-05] MEDS: ASPIRIN EC 81 MG TAB PO SCH (13:20)
[2021-04-05] MEDS: CLOPIDOGREL 75 MG TAB PO SCH (13:20)
--- NOTE | 2021-04-05 13:41 | Event Note ---
Date: 04/05/21 Patient underwent an exercise thallium stress test during which he exercised for 7 minutes of a Alireza block, there was no chest pain, no ST changes of ischemia, thallium images are pending for final test results.
--- NOTE | 2021-04-05 13:44 | Nuclear Medicine Report ---
APPROVED REPORT Exam: Nuclear Stress Test Indication: Chest pain Ht: 5 ft 4 in Wt: 189 lbs BSA: 1.91 m2 BMI: 32.43 Rhythm: NSR Stress Test Details Stress Test: Exercise stress testing was performed using a Alireza protocol. HR Resting HR: 64 bpm Max HR Achieved: 116 bpm Max Heart Rate (APMHR): 173 bpm Target HR (85% APMHR): 147 bpm % of APMHR: 67 Recovery HR: 76 bpm HR response to stress: Normal HR response to stress BP Resting BP: 129/69 mmHg Max BP: 140/90 mmHg Recovery BP: 122/80 mmHg BP response to stress: Normal blood pressure response to stress. ECG Resting ECG: Sinus Rhythm Stress ECG: Sinus Tachycardia ST Change: None Arrhythmia: None Recovery ECG: Sinus Rhythm Recovery ST Change: None Recovery Arrhythmia: None Clinical Reason for Termination: Fatigue Stress Symptoms: None Exercise duration: 7 min 01 sec Exercise capacity: 8.3 METs Overall Exercise Capacity for Age: Good Stress ECG Conclusion No chest pain and no ST changes with exercise to 8 METS. Myocardial perfusion images are pending. NM EXAM: Myocardial Perfusion REST/STRESS Imaging Protocol: Rest Tc-99m/Stress Tc-99m 1 day Resting Data Rest SPECT myocardial perfusion imaging was performed in supine position 45 minutes following the intravenous injection of 10 mCi of Tc-99m Myoview. Time of rest injection: 0700 Pharmacologic Stress Pharmacologic stress test was performed by injecting Regadenoson 0.4 mg IV push followed by the intravenous injection of 28 mCi of Tc-99m Myoview. Time of stress injection: 12:00 Gated Stress SPECT was performed 45 minutes after stress injection. Study Data TID = 0.92. Perfusion Nuclear Conclusion ECG Findings: negative for ischemia Clinical Findings: negative for ischemia Nuclear Findings: negative for ischemia Exercise Capacity: normal Left Ventricular Function: normal Risk Study: low No chest pain, no ST changes of ischemia, no dysrhythmias with exercise testing to 8 METS. Myocardial perfusion images show normal myocardial perfusion at both rest and stress, no ischemic defect. Left ventricular ejection fraction 59% by gated SPECT. Normal study. Conclusion No chest pain and no ST changes with exercise to 8 METS. Myocardial perfusion images are pending.
--- NOTE | 2021-04-06 09:07 | Electrocardiograph Report ---
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
--- NOTE | 2021-04-06 18:58 | Electrocardiograph Report ---
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
== END 2021-04-05 15:30 | disposition home or self-care (01) ==
LOC: ED 03:15 → 4A 06:06
PROVIDERS: ADMIT Internal Medicine Geriatric Medicine; ATTEND Hospitalist
DX: I24.9 Acute ischemic heart disease, unspecified (principal); R07.89 Other chest pain; I10 Essential (primary) hypertension; I25.10 Atherosclerotic heart disease of native coronary artery without angina pectoris; E11.9 Type 2 diabetes mellitus without complications; E78.2 Mixed hyperlipidemia; Z95.1 Presence of aortocoronary bypass graft; Z79.4 Long term (current) use of insulin; Z79.82 Long term (current) use of aspirin; Z79.02 Long term (current) use of antithrombotics/antiplatelets; Z87.891 Personal history of nicotine dependence; Z79.84 Long term (current) use of oral hypoglycemic drugs
CPT/HCPCS: 36415; 71046; 78452; 80053; 81001; 82962; 83036; 84484; 85025; 93005; 93017; 96372; 99285; A9270; A9502; G0378; J1650; 80048; 85007; J1815; J2785

== ENCOUNTER 2021-05-25 08:12 | Outpatient (CLI) | payer BC ==
[2021-05-25 09:01] LABS: Chol/HDL Ratio 3.11 %
== END 2021-05-25 08:13 | disposition home or self-care (01) ==
LOC: LAB 08:12
PROVIDERS: ATTEND Internal Medicine
DX: E11.9 Type 2 diabetes mellitus without complications (principal); E78.5 Hyperlipidemia, unspecified
CPT/HCPCS: 36415; 80061; 83036

== ENCOUNTER 2022-01-12 09:30 | Outpatient (CLI) | payer BC ==
[2022-01-12 13:02] LABS: Alanine Aminotransferase 25 units/L (7-56); Albumin 4.5 g/dL (3.9-5); Blood Urea Nitrogen 12 mg/dL (9-20); Calcium 9.3 mg/dL (8.4-10.2); Chol/HDL Ratio 4.07 %; HDL Cholesterol 40 mg/dL (40-59); Hemolysis Index 9; LDL Cholesterol,Direct 102 mg/dL (50-130)
[2022-01-12 13:09] LABS: BUN/Creatinine Ratio 20
[2022-01-12 15:06] LABS: Creatinine,Urine 59.6 mg/dL (0.1-20.0)
[2022-01-12 15:07] LABS: Microalbumin/Creatinine Ratio 20.1 ug/mg
[2022-01-12 15:13] LABS: Bilirubin,Urine Negative (Negative); Color,Urine Yellow (Yellow)
[2022-01-12 15:14] LABS: Blood,Urine Negative (Negative); Protein,Urine <15 mg/dL mg/dL (Negative)
[2022-01-12 15:15] LABS: Mucus,Urine 1+ /HPF; WBC,Urine < 1.0 /HPF (0.0-6.0)
[2022-01-12 15:46] LABS: Basophils # (Auto) 0.1 K/mm3 (0.0-0.1); Basophils % (Auto) 0.7 % (0.0-1.8); Eosinophils # (Auto) 1.1 K/mm3 (0.0-0.4); Eosinophils % (Auto) 13.3 % (0.0-4.3); Hematocrit 42.9 % (35.5-45.6); Hemoglobin 14.5 gm/dl (11.8-15.2); Lymphocytes # (Auto) 2.3 K/mm3 (1.2-5.4); Lymphocytes % (Auto) 27.9 % (13.4-35.0); Mean Corpuscular HGB Conc 34 % (32-34); Mean Corpuscular Volume 83 fl (84-94); Monocytes # (Auto) 0.4 K/mm3 (0.0-0.8); Monocytes % (Auto) 4.7 % (0.0-7.3); Platelet Count 240 K/mm3 (140-440); Red Blood Count 5.17 M/mm3 (3.65-5.03); Red Cell Distribution Width 13.3 % (13.2-15.2)
== END 2022-01-12 09:31 | disposition home or self-care (01) ==
LOC: LABHHL 09:30
PROVIDERS: ATTEND Internal Medicine
DX: E11.9 Type 2 diabetes mellitus without complications (principal); E55.9 Vitamin D deficiency, unspecified; E78.5 Hyperlipidemia, unspecified; I25.10 Atherosclerotic heart disease of native coronary artery without angina pectoris; N39.0 Urinary tract infection, site not specified; R53.83 Other fatigue
CPT/HCPCS: 36415; 80053; 80061; 81001; 82043; 82306; 83036; 84443; 85025